=== PATIENT | female | born 1960 | race Caucasian/White ===

== ENCOUNTER 2025-09-08 06:05 | Day surgery (SDC) | payer MEDICARE, OTHER ==
[2025-09-08] MEDS ORDERED: Lactated Ringers 1,000 ML IV ONE (06:08)
[2025-09-08 06:51] VITALS: RESP 18
[2025-09-08] MEDS: Lactated Ringers 1,000 ML IV SCH (06:59)
[2025-09-08] MEDS ORDERED: propofoL IV ONE ×2 (07:54→08:11)
[2025-09-08] MEDS ORDERED: Xylocaine-Mpf 2% 5 Ml Vial ONE (07:54)
[2025-09-08 08:58] VITALS: TEMP 97.3
[2025-09-08 09:03] VITALS: BP 152/79; PULSE 63; O2SAT 99
--- NOTE | 2025-09-09 10:32 | OP ---
SURGERY DATE/TIME: 09/08/2025 [id number] PREOPERATIVE DIAGNOSES: 1) Dysphagia. 2) Abdominal pain. 3) Screening colonoscopy. POSTOPERATIVE DIAGNOSES: 1) Normal esophagogastroduodenoscopy. 2) Normal colon. PROCEDURE PERFORMED: Esophagogastroduodenoscopy and colonoscopy. SURGEON: Bernardo Hernandez MD ANESTHESIA: MAC by Viotr Sal CRNA. ESTIMATED BLOOD LOSS: None. SPECIMENS: None. INDICATIONS: This patient is a 65-year-old female who was scheduled for EGD and colonoscopy for the above complaints. Upon arrival, it was discovered that she had not held her clopidogrel but just her aspirin and after discussion with family and patient, they elected to proceed with EGD and colonoscopy with the understanding that there would be no biopsies or interventions performed due to the bleeding risk. DESCRIPTION OF PROCEDURE AND FINDINGS: After informed consent was obtained, she was taken to the endoscopy suite. She was placed in the left lateral decubitus position and bite block was inserted. Anesthesia was titrated to desired level of consciousness. The endoscope was inserted in the posterior oropharynx under direct visualization with no obvious mucosal abnormalities. Upon entering the stomach, there was normal rugated gastric mucosa. No lesions or mucosal abnormalities. Pylorus was traversed and the first and second portions of the duodenum had a normal mucosal appearance. No obvious abnormalities were appreciable. Upon withdrawal from the pylorus, retroflexion was performed, showed no obvious mucosal abnormalities in the cardiac portion of the stomach. The GE junction and esophageal mucosa again were all inspected and noted to be within normal limits upon withdrawal. Scope was removed and the scopes were switched. Digital rectal exam showed normal sphincter tone and no internal lesions. The scope was inserted into the rectum and sequentially the entire colonic mucosa was easily traversed. Level of cecum was reached and verified with direct visualization of the ileocecal valve. No obvious mucosal abnormalities were encountered upon withdrawal. Prior to withdrawal, retroflexion showed no internal lesions. Scope was removed, and patient was transferred to the recovery room in good condition. After a discussion with the family with these concerns and the patient's history of vascular disease, recommended that they discuss in consultation with primary care physician, might want to consider evaluation for mesenteric ischemia or other functional etiologies regarding these complaints.
== END 2025-09-08 08:20 | disposition home or self-care (01) ==
LOC: SDC 06:05
PROVIDERS: ATTEND Family Medicine
DX: Z12.11 Encounter for screening for malignant neoplasm of colon (principal); R10.9 Unspecified abdominal pain; R13.10 Dysphagia, unspecified
CPT/HCPCS: 43235; G0121